=== PATIENT | male | born 1980 | race Caucasian/White ===

== ENCOUNTER 2016-07-27 18:39 | Emergency (ER) | payer BC, OTHER ==
[~2016-07-27] VITALS: Ht 172.7 cm; Wt 99.6 kg
[~2016-07-27 18:39] MED LIST: LRT5 PO; OXYC-57 PO
[2016-07-27 18:57] VITALS: TEMP 37.2; Ht 172.7 cm; Wt 99.6 kg
[2016-07-27 19:47] VITALS: O2SAT 98
[2016-07-27] MEDS ORDERED: ONDANSETRON INJ 2 MG/ML 2 ML VIAL IV STA (19:50)
[2016-07-27 20:00] LABS: BASO % 0.4 %; BASO ABS # 0.02 K/uL (0-0.2); COMPLETE YES; EOS % 0.6 %; HEMATOCRIT 48.9 % (42-52); IG% 0.2 %; LYMPH % 24.2 %; LYMPH ABS # 1.19 K/uL (1.2-3.4); MEAN CELL VOLUME 88.1 fL (80-100); MEAN CORPUSCULAR HEMOGLOBIN 30.6 pg (25-34); MEAN CORPUSCULAR HGB CONC 34.8 g/dl (32-36); MEAN PLATELET VOLUME 10.6 fL (7.4-10.4); MONO % 11.8 %; NEUT % 62.8 %; PLATELET COUNT 158 K/uL (130-400); RED BLOOD COUNT 5.55 M/uL (4.7-6.1); WHITE BLOOD COUNT 4.92 K/uL (4.8-10.8)
[2016-07-27] MEDS ORDERED: MoRPHine SULFATE 4 MG/ML 1 ML CARP\\VIAL IV PRN (20:00)
--- NOTE | 2016-07-27 20:00 | EMERGENCY ROOM VISIT NOTE ---
History Report prepared by Candie: Cheryl Mccollum Under the Supervision of: Christy BorjaO. First contact with patient: 19:46 Chief Complaint: HYPERTENSION Stated Complaint: MASSIVE FRANCIS FOR OVER 24 HOURS, FEELS FAINT, HIGH BP History of Present Illness The patient is a 35 year old male who presents to the Emergency Room with complaints of constant head pressure beginning yesterday morning. The patient states that the pain felt better when he woke up this morning but it came back again this afternoon in the same spot. He notes that he feels faint and has been vomiting. He denies any fever. Source of History: patient Onset: yesterday morning Position: head Quality: pressure Timing: constant Modifying Factors (Relieving): other (sleep) Associated Symptoms: + vomiting, No fevers Note: The patient notes he has been feeling faint. Review of Systems See HPI for pertinent positives & negatives. A total of 10 systems reviewed and were otherwise negative. Past Medical & Surgical Medical Problems: (1) No Known Active Medical Problems Family History Patient reports no known family medical history. Social History Smoking Status: Never Smoker Smokeless Tobacco Use: No Alcohol Use: occasionally Marital Status: Housing Status: lives with family Occupation Status: employed Current/Historical Medications Scheduled PRN Ibuprofen (Advil), 400 MG PO UD PRN for Headache Allergies Coded Allergies: No Known Allergies (Unverified , 07/27/16) Physical Exam Vital Signs Date Time Temp Pulse Resp B/P Pulse Ox O2 Delivery O2 Flow Rate FiO2 07/27/16 21:56 76 20 136/79 98 Room Air 07/27/16 20:45 83 16 161/91 95 Room Air 07/27/16 19:47 98 Room Air 07/27/16 19:47 79 07/27/16 19:46 78 20 140/95 97 Room Air 07/27/16 18:57 37.2 104 18 150/95 98 Room Air Physical Exam GENERAL: Patient is awake, alert, and in no acute distress. Patient is resting comfortably and showing no signs of anxiety EYES: The conjunctivae are clear. The pupils are round and reactive. EARS, NOSE, MOUTH AND THROAT: The nose is without any evidence of any deformity. Mucous membranes are moist tongue is midline NECK: The neck is nontender and supple. RESPIRATORY: Normal respiratory effort is noted there is no evidence of wheezing rhonchi or rales CARDIOVASCULAR: Regular rate and rhythm noted there no murmurs rubs or gallops normal S1 normal S2 GASTROINTESTINAL: The abdomen is soft. Bowel sounds are present in all quadrants. Abdomen is nontender MUSCULOSKELETAL/EXTREMITIES: There is no evidence of gross deformity full range of motion is noted in the hips and shoulders SKIN: There is no obvious evidence of any rash. There are no petechiae, pallor or cyanosis noted. NEUROLOGIC: Patient is awake alert and oriented x3 strength is symmetric patellar reflexes are 2+ bilaterally Medical Decision & Procedures ER Provider Diagnostic Interpretation: X ray results and stated below per my interpretation and radiology interpretation. Other radiology results per my review and radiologist interpretation: CHEST ONE VIEW PORTABLE FINDINGS: The cardiac and mediastinal contours are normal. There is no evidence of focal pulmonary consolidation. There is no evidence of failure. No pleural effusions are visualized.[ Differential attenuation of the hemithoraces is felt to be secondary to technical factors. IMPRESSION: No active disease in the chest. Electronically signed by: Aman Adorno M.D. 07/27/2016 8:03 PM Dictated Date/Time: 07/27/2016 8:[address] HEAD WITHOUT CONTRAST (CT) FINDINGS: No intra or extra-axial mass lesions are visualized. There is no CT evidence of acute cortical infarction. There is no evidence of midline shift. There is no acute hemorrhage. No calvarial fractures are visualized. There is no evidence of pathologic ventricular dilatation. There is opacification of a single left-sided ethmoid air cell. IMPRESSION: No acute intracranial findings Electronically signed by: Aman Adorno M.D. 07/27/2016 9:22 PM Dictated Date/Time: 07/27/2016 9:20 PM Laboratory Results 07/27/16 19:45 Red Blood Count 5.55, Mean Corpuscular Volume 88.1, Mean Corpuscular Hemoglobin 30.6, Mean Corpuscular Hemoglobin Concent 34.8, Mean Platelet Volume 10.6, Neutrophils (%) (Auto) 62.8, Lymphocytes (%) (Auto) 24.2, Monocytes (%) (Auto) 11.8, Eosinophils (%) (Auto) 0.6, Basophils (%) (Auto) 0.4, Neutrophils # (Auto ) 3.09, Lymphocytes # (Auto) 1.19, Monocytes # (Auto) 0.58, Eosinophils # (Auto ) 0.03, Basophils # (Auto) 0.02 07/27/16 19:45 Test 07/27/16 19:45 White Blood Count 4.92 K/uL (4.8-10.8) Red Blood Count 5.55 M/uL (4.7-6.1) Hemoglobin 17.0 g/dL (14.0-18.0) Hematocrit 48.9 % (42-52) Mean Corpuscular Volume 88.1 fL (80-100) Mean Corpuscular Hemoglobin 30.6 pg (25-34) Mean Corpuscular Hemoglobin Concent 34.8 g/dl (32-36) Platelet Count 158 K/uL (130-400) Mean Platelet Volume 10.6 fL (7.4-10.4) Neutrophils (%) (Auto) 62.8 % Lymphocytes (%) (Auto) 24.2 % Monocytes (%) (Auto) 11.8 % Eosinophils (%) (Auto) 0.6 % Basophils (%) (Auto) 0.4 % Neutrophils # (Auto) 3.09 K/uL (1.4-6.5) Lymphocytes # (Auto) 1.19 K/uL (1.2-3.4) Monocytes # (Auto) 0.58 K/uL (0.11-0.59) Eosinophils # (Auto) 0.03 K/uL (0-0.5) Basophils # (Auto) 0.02 K/uL (0-0.2) RDW Standard Deviation 39.7 fL (36.4-46.3) RDW Coefficient of Variation 12.5 % (11.5-14.5) Immature Granulocyte % (Auto) 0.2 % Immature Granulocyte # (Auto) 0.01 K/uL (0.00-0.02) Anion Gap 10.0 mmol/L (3-11) Est Creatinine Clear Calc Drug Dose 109.3 ml/min Estimated GFR () 101.7 Estimated GFR (Non- 87.7 BUN/Creatinine Ratio 10.0 (10-20) Calcium Level 8.8 mg/dl (8.5-10.1) Total Bilirubin 0.8 mg/dl (0.2-1) Direct Bilirubin mg/dl (0-0.2) Aspartate Amino Transf (AST/SGOT) U/L (15-37) Alanine Aminotransferase (ALT/SGPT) 127 U/L (12-78) Alkaline Phosphatase 82 U/L (45-117) Total Protein 7.8 gm/dl (6.4-8.2) Albumin 4.2 gm/dl (3.4-5.0) Lipase 250 U/L (73-393) Laboratory results per my review. Medications Administered Medications (Trade) Dose Ordered Sig/Chance Route Start Time Stop Time Status Last Admin Dose Admin Morphine Sulfate (MoRPHine SULFATE INJ) 4 mg Q15M PRN IV 07/27/16 20:00 07/27/16 22:32 DC 07/27/16 21:58 4 MG Ondansetron HCl (Zofran Inj) 4 mg NOW STAT IV 07/27/16 19:50 07/27/16 19:52 DC 07/27/16 20:43 4 MG Oxycodone HCl (Roxicodone Immediate Rel 5MG Home Pack) 1 homepack UD ONCE PO 07/27/16 21:45 07/27/16 21:46 DC 07/27/16 21:58 1 HOMEPACK ED Course 1950: The patient was evaluated in room B2. A complete history and physical examination were performed. 1949: Zofran Inj 4mg IV. 1999: Morphine Sulfate 4mg PRN IV pain, Morphine Sulfate 4mg PRN IV pain. 2035: I reevaluated the patient. He is feeling better. 2144: Oxycodone HCl 1 homepack PO. 2146: Upon reevaluation, the patient is hemodynamically stable. I discussed the results and treatment plan with the patient. He verbalized agreement of the treatment plan. The patient was discharged home. Medical Decision Differential diagnosis: Etiologies such as migraine headache, meningitis, sinusitis, CO exposure, ICH, SAH, infection, tumor, headache, sinus thrombosis, arterial dissection, as well as others were entertained. Nursing notes reviewed. The patient is a 35-year-old male who presented to the emergency apartment for an evaluation of headache. The patient describes intermittent headache that he' s had for the last few days. Headache became worse last evening. The patient did not have meningismus or fever. He had no focal neurologic deficit. The patient also was found have elevated blood pressure although I am unsure if his blood pressure elevation is secondary to his headache or if the headache is secondary to the high blood pressure. He states that he's never had abnormal blood pressure in the past. I discussed the patient's laboratory and radiographic studies with him. He was feeling much better on subsequent reevaluation. He was treated with IV pain medicine IV antiemetics. Rest and avoid any strenuous activity. He was encouraged to follow-up with his primary care physician for blood pressure check and return to the emergency department immediately if symptoms change worsen or the need arises. Impression Primary Impression: Acute headache Additional Impression: HTN (hypertension) Scribe Attestation The scribe's documentation has been prepared under my direction and personally reviewed by me in its entirety. I confirm that the note above accurately reflects all work, treatment, procedures, and medical decision making performed by me. Departure Information Dispostion Home / Self-Care Referrals No Doctor, Assigned (PCP) Forms HOME CARE DOCUMENTATION FORM, IMPORTANT VISIT INFORMATION, WORK / SCHOOL INSTRUCTIONS Patient Instructions Headache Pain, My [facility] Additional Instructions Call your family to schedule a follow-up appointment. Continue all medications as prescribed. Continue using Motrin and Tylenol as directed for headache. Have your blood pressure rechecked by your doctor to determine if you will need to be started on medications for hypertension. Return to the emergency apartment immediately if symptoms change worsen or the need arises. Problem Qualifiers
--- NOTE | 2016-07-27 20:05 | DIAGNOSTIC IMAGING REPORT ---
CHEST ONE VIEW PORTABLE CLINICAL HISTORY: Severe headache COMPARISON STUDY: No previous studies for comparison. FINDINGS: The cardiac and mediastinal contours are normal. There is no evidence of focal pulmonary consolidation. There is no evidence of failure. No pleural effusions are visualized.[ Differential attenuation of the hemithoraces is felt to be secondary to technical factors. IMPRESSION: No active disease in the chest. Electronically signed by: Aman Adorno M.D. 07/27/2016 8:03 PM Dictated Date/Time: 07/27/2016 8:03 PM
[2016-07-27 20:21] LABS: ALKALINE PHOSPHATASE 82 U/L (45-117); ALT/SGPT 127 U/L (12-78); BLOOD UREA NITROGEN 11 mg/dl (7-18); CALCIUM 8.8 mg/dl (8.5-10.1); CARBON DIOXIDE 26 mmol/L (21-32); CHLORIDE 105 mmol/L (98-107); GLUCOSE 101 mg/dl (70-99); SODIUM 141 mmol/L (136-145)
[2016-07-27] MEDS ORDERED: IBUP-1050 PO (20:41)
[2016-07-27] MEDS: MoRPHine SULFATE 4 MG/ML 1 ML CARP\\VIAL IV PRN ×2 (20:43→21:58)
--- NOTE | 2016-07-27 21:24 | DIAGNOSTIC IMAGING REPORT ---
CT HEAD WITHOUT CONTRAST (CT) CLINICAL HISTORY: Severe headache COMPARISON STUDY: No previous studies for comparison. TECHNIQUE: Axial CT of the brain is performed from the vertex to the skull base. IV contrast was not administered for this examination. CT DOSE: 537.48 mGy.cm FINDINGS: No intra or extra-axial mass lesions are visualized. There is no CT evidence of acute cortical infarction. There is no evidence of midline shift. There is no acute hemorrhage. No calvarial fractures are visualized. There is no evidence of pathologic ventricular dilatation. There is opacification of a single left-sided ethmoid air cell. IMPRESSION: No acute intracranial findings Electronically signed by: Aman Adorno M.D. 07/27/2016 9:22 PM Dictated Date/Time: 07/27/2016 9:20 PM
[2016-07-27] MEDS ORDERED: OXYCODONE IR HOME PACK PO ONE (21:45)
[2016-07-27 21:56] VITALS: BP 136/79; PULSE 76; O2SAT 98
== END 2016-07-27 22:00 | disposition home or self-care (01) ==
LOC: C.EDB 18:40
DX: R51 Headache (principal); I10 Essential (primary) hypertension; R11.10 Vomiting, unspecified

== ENCOUNTER → 2016-09-09 | Outpatient (CLI) | payer BC ==
[~2016-09-09] MED LIST changes: +IBUP-1050 PO; -LRT5 PO; -OXYC-57 PO
--- NOTE | 2016-09-09 19:05 | DIAGNOSTIC IMAGING REPORT ---
C-SPINE ROUTINE 4 OR 5 VIEWS CLINICAL HISTORY: Headache. Bilateral arm pain. COMPARISON STUDY: No previous studies for comparison. FINDINGS: Visualization of the cervical spine is adequate. There is straightening of the normal cervical lordosis. No acute fracture or suspicious lesion is identified. There is moderate narrowing of the right C3-C4 neural foramen. Mild multilevel degenerative changes are present. IMPRESSION: 1. No cervical spine fracture. 2. Minimal multilevel degenerative changes with suspected moderate bony neural frontal narrowing of the right C3-C4 neural foramen. Electronically signed by: Eric Palafox M.D. 09/09/2016 7:03 PM Dictated Date/Time: 09/09/2016 7:02 PM
== END | disposition home or self-care (01) ==
LOC: C.RAD 18:07
PROVIDERS: ATTEND Family Medicine
DX: M47.812 Spondylosis without myelopathy or radiculopathy, cervical region (principal); R51 Headache

== ENCOUNTER 2016-09-15 10:05 | Emergency (ER) | payer BC ==
[~2016-09-15] VITALS: Ht 172.7 cm; Wt 97.8 kg
[2016-09-15 10:13] VITALS: TEMP 36.8; O2SAT 95; Ht 172.7 cm; Wt 97.8 kg
[2016-09-15 10:57] LABS: BASO % 0.7 %; BASO ABS # 0.04 K/uL (0-0.2); COMPLETE YES; EOS % 1.2 %; HEMATOCRIT 48.1 % (42-52); IG% 0.2 %; LYMPH % 48.7 %; LYMPH ABS # 2.93 K/uL (1.2-3.4); MEAN CORPUSCULAR HEMOGLOBIN 30.1 pg (25-34); MEAN CORPUSCULAR HGB CONC 34.9 g/dl (32-36); MEAN PLATELET VOLUME 9.6 fL (7.4-10.4); MONO % 11.5 %; NEUT % 37.7 %; PLATELET COUNT 203 K/uL (130-400); RED BLOOD COUNT 5.59 M/uL (4.7-6.1); WHITE BLOOD COUNT 6.02 K/uL (4.8-10.8)
[2016-09-15 11:10] LABS: BLOOD UREA NITROGEN 12 mg/dl (7-18); BUN/CREATININE RATIO 8.4 (10-20); CALCIUM 9.2 mg/dl (8.5-10.1); CARBON DIOXIDE 25 mmol/L (21-32); CHLORIDE 101 mmol/L (98-107); GLUCOSE 123 mg/dl (70-99); POTASSIUM 3.5 mmol/L (3.5-5.1); SODIUM 138 mmol/L (136-145)
[2016-09-15 11:12] LABS: C-REACTIVE PROTEIN < 0.29 mg/dl (0-0.29)
[2016-09-15 12:32] VITALS: BP 131/86; PULSE 82; O2SAT 95
--- NOTE | 2016-09-15 17:09 | EMERGENCY ROOM VISIT NOTE ---
History First contact with patient: 10:19 Chief Complaint: SHORTNESS OF BREATH Stated Complaint: SOB, PRESSURE IN HEAD History of Present Illness The patient is a 35 year old white male who presents to the Emergency Room with complaints of head and facial pressure today. He states he has it every day, but it is more intense today. He has had numerous workups both here in the ED as well as with his PCP area nothing is ever been found. He also notes that he was sitting on a couch today and had an intense feeling of acute shortness of breath. It resolved by time he came to the ED. His accompanies him today. He has never had the shortness of breath sensation in the past. He denies any cold symptoms. No rhinorrhea. No fevers, chills, sweats, nausea, vomiting, diarrhea, abdominal pain, chest heaviness, chest pressure, chest pain , or back pain. No radiation to the arms. He denies any history of asthma or recent travel. No calf pain. No change in vision, speech, or hearing. He has had chest x-rays, neck x-rays, and head CTs in the past. Review of Systems REVIEW OF SYSTEM: HEENT: No dizziness, visual problems, hearing loss, or tinnitus. There is no difficulty swallowing and no oral lesions are present. LYMPH: No adenopathy. PULMONARY: No cough, sputum production or hemoptysis. CARDIOVASCULAR: No chest pain, palpitations, or peripheral edema. GASTROINTESTINAL: No diarrhea, constipation, nausea, vomiting, or abdominal pain. GENITOURINARY: No dysuria, frequency, urgency or nocturia. NEUROLOGIC: No weakness, muscle tenderness, epilepsy or history of neurological problems. No history of chronic headaches. MUSCULOSKELETAL: No history of joint tenderness/swelling. No history of arthritis or arthralgias. SKIN: No rashes or lesions. PSYCHIATRIC: No history of depression or mental illness. ENDOCRINE: No history of diabetes, thyroid disorders, or abnormal hair growth. Past Medical/Surgical History Medical Problems: (1) No Known Active Medical Problems Family History Patient reports no known family medical history. Social History Smoking Status: Former Smoker Smokeless Tobacco Use: No Alcohol Use: occasionally Drug Use: none Marital Status: Housing Status: lives with family Occupation Status: employed Current/Historical Medications Scheduled PRN Ibuprofen (Advil), 400 MG PO UD PRN for Headache Allergies Coded Allergies: No Known Allergies (Unverified , 09/15/16) Physical Exam Vital Signs Date Time Temp Pulse Resp B/P Pulse Ox O2 Delivery O2 Flow Rate FiO2 09/15/16 12:32 82 16 131/86 95 Room Air 09/15/16 11:36 86 20 120/88 95 Room Air 09/15/16 10:17 104 09/15/16 10:13 36.8 106 20 180/96 95 Room Air 09/15/16 10:13 95 Room Air 09/15/16 10:13 96 Room Air Pain Rating (0-10): 4.0 Physical Exam Gen.: Well-developed, well-nourished, young white male, in no acute distress. Laying on a bed. Alert and oriented. Skin:Warm and dry with good turgor. No rashes or lesions. No ecchymosis or erythema. The patient is not diaphoretic. No abrasions. HEENT: Normocephalic atraumatic. Eyes PERRLA, EOMI. No conjunctiva or scleral injection. Ears TMs intact bilaterally with good light reflexes. No erythema or bulging. No hemotympanum. Canals are patent. Nares patent bilaterally without turbinate enlargement. No significant drainage. No epistaxis. Oropharynx without erythema or exudate. Uvula midline, oral mucosa moist. No lesions present. Lymphatics are palpated without anterior or posterior chain enlargement or tenderness. Heart: Heart RRR. No MGR. Peripheral pulses are 2+. Lungs: Lungs are clear to auscultation. No crackles rhonchi or wheezing. Good air movement. The patient is able to take a deep breath. Abdomen: Abdomen was inspected, auscultated, and palpated. Bowel sounds present x 4. Soft, nontender to palpation. No hepato-splenomegaly. No masses noted. No rebound. No CVA tenderness. Musculoskeletal: Gross motor function of the upper and lower extremities is intact and unremarkable. No calf discomfort with palpation. No palpable cords. Neurologic: Gross sensation is intact across both lower extremities by soft touch. Patient was noted to have some numbness across the toes. It did not extend to the foot. Sensation was normal there. Medical Decision & Procedures Laboratory Results 09/15/16 10:13 Red Blood Count 5.59, Mean Corpuscular Volume 86.0, Mean Corpuscular Hemoglobin 30.1, Mean Corpuscular Hemoglobin Concent 34.9, Mean Platelet Volume 9.6, Neutrophils (%) (Auto) 37.7, Lymphocytes (%) (Auto) 48.7, Monocytes (%) (Auto) 11.5, Eosinophils (%) (Auto) 1.2, Basophils (%) (Auto) 0.7, Neutrophils # (Auto ) 2.28, Lymphocytes # (Auto) 2.93, Monocytes # (Auto) 0.69, Eosinophils # (Auto ) 0.07, Basophils # (Auto) 0.04 09/15/16 10:13 Test 09/15/16 10:13 White Blood Count 6.02 K/uL (4.8-10.8) Red Blood Count 5.59 M/uL (4.7-6.1) Hemoglobin 16.8 g/dL (14.0-18.0) Hematocrit 48.1 % (42-52) Mean Corpuscular Volume 86.0 fL (80-100) Mean Corpuscular Hemoglobin 30.1 pg (25-34) Mean Corpuscular Hemoglobin Concent 34.9 g/dl (32-36) Platelet Count 203 K/uL (130-400) Mean Platelet Volume 9.6 fL (7.4-10.4) Neutrophils (%) (Auto) 37.7 % Lymphocytes (%) (Auto) 48.7 % Monocytes (%) (Auto) 11.5 % Eosinophils (%) (Auto) 1.2 % Basophils (%) (Auto) 0.7 % Neutrophils # (Auto) 2.28 K/uL (1.4-6.5) Lymphocytes # (Auto) 2.93 K/uL (1.2-3.4) Monocytes # (Auto) 0.69 K/uL (0.11-0.59) Eosinophils # (Auto) 0.07 K/uL (0-0.5) Basophils # (Auto) 0.04 K/uL (0-0.2) RDW Standard Deviation 37.9 fL (36.4-46.3) RDW Coefficient of Variation 12.0 % (11.5-14.5) Immature Granulocyte % (Auto) 0.2 % Immature Granulocyte # (Auto) 0.01 K/uL (0.00-0.02) Erythrocyte Sedimentation Rate 11 mm/hr (0-14) D-Dimer < 190 ug/L FEU (0-500) Anion Gap 12.0 mmol/L (3-11) Est Creatinine Clear Calc Drug Dose 85.1 ml/min Estimated GFR () 76.0 Estimated GFR (Non- 65.5 BUN/Creatinine Ratio 8.4 (10-20) Calcium Level 9.2 mg/dl (8.5-10.1) C-Reactive Protein < 0.29 mg/dl (0-0.29) CBC, PRP, d-dimer, sedimentation rate, and C-reactive protein were obtained. All are unremarkable. ED Course Patient and his were educated regarding today's findings. Conservative care measures were discussed. IV was established. Labs were obtained. Option of imaging studies was discussed. He recently had chest x-ray, C-spine x-ray, and CT scan imaging of his head. All of these were unremarkable. I do not think they need to repeat it at this point. Patient's facial symptoms are not currently any worse than his daily baseline. Shortness of breath is no longer present. They were reassured that I do not suspect DVT, PE, pneumonia, or acute asthma flare. I do not suspect sinusitis regarding his facial pressure. Possibility of migraine variant was discussed at length. During today's exam, patient noted that his toes on the right foot more numb and tingling. He had intact sensation to the right leg and foot. The rest of the corresponding dermatomes for the toes, were intact and unremarkable. I would like him to follow-up with neurology. He may ultimately also need to see ENT regarding his facial pressure. Return to ED for any acute changes or worsening of symptoms. His verbalized an understanding. Medical Decision Possibility of pneumonia, PE, asthma flare, sinusitis, and intracranial lesion were considered. Impression Primary Impression: Facial pressure Additional Impression: Shortness of breath Departure Information Dispostion Home / Self-Care Condition GOOD Referrals Beni Herrera M.D. Forms HOME CARE DOCUMENTATION FORM, IMPORTANT VISIT INFORMATION Patient Instructions My [facility] [place] Additional Instructions Follow-up with neurology for further evaluation Return to the ED for any recurrence of symptoms or exacerbation Mucinex D may be helpful for your facial pressure Have your blood pressure rechecked on different days, and at different times of day Problem Qualifiers
== END 2016-09-15 12:49 | disposition home or self-care (01) ==
LOC: C.EDB 10:07 → C.EDA 12:49
DX: R51 Headache (principal); R06.02 Shortness of breath; Z87.891 Personal history of nicotine dependence

== ENCOUNTER → 2016-10-18 | Outpatient (CLI) | payer BC ==
[~2016-10-18] MED LIST changes: +GADAVIST IV PRN
--- NOTE | 2016-10-18 07:25 | DIAGNOSTIC IMAGING REPORT ---
MRI OF THE BRAIN WITHOUT AND WITH IV CONTRAST CLINICAL HISTORY: HEADACHES COMPARISON STUDY: No previous studies for comparison. TECHNIQUE: Utilizing a 1.5 [place] magnet and dedicated coil, multiplanar, multiecho imaging of the brain was performed pre and postcontrast administration. IV administration of 8 mL of Gadavist contrast was uneventful. FINDINGS: Diffusion-weighted images are negative for an acute ischemic insult. Low-lying cerebellar tonsils. Ventricular system is midline. Signal characteristics are unremarkable. No deviation of midline structures. No abnormal postcontrast enhancement. IMPRESSION: Low-lying cerebellar tonsils. Otherwise negative MRI of the brain. Electronically signed by: Micheal Loya M.D. 10/18/2016 7:23 AM Dictated Date/Time: 10/18/2016 7:17 AM
== END | disposition home or self-care (01) ==
LOC: C.MRI 06:28
PROVIDERS: ATTEND Family Medicine
DX: R51 Headache (principal); F41.0 Panic disorder [episodic paroxysmal anxiety]; F41.8 Other specified anxiety disorders

== ENCOUNTER → 2017-10-04 | Outpatient (CLI) | payer BC ==
[~2017-10-04] MED LIST changes: -GADAVIST IV PRN
--- NOTE | 2017-10-04 10:57 | DIAGNOSTIC IMAGING REPORT ---
(TESTICULAR) SCROTUM-CONT HISTORY: Pain EPIDIDYMITIS COMPARISON: None. FINDINGS: Right testis: Maximum dimension 4.1 cm. Normal vascular flow. Left testis: Maximum dimension 4.4 cm. Normal vascular flow IMPRESSION: Normal study The above report was generated using voice recognition software. It may contain grammatical, syntax or spelling errors. Electronically signed by: Micheal Loya M.D. 10/04/2017 10:56 AM Dictated Date/Time: 10/04/2017 10:55 AM
== END | disposition home or self-care (01) ==
LOC: C.ULTR 09:38
PROVIDERS: ATTEND Family Medicine
DX: N45.1 Epididymitis (principal)